=== PATIENT | female | born 1950 | race African-American/Black ===

== ENCOUNTER → 2019-01-16 | Outpatient (CLI) | payer OTHER ==
[2015-01-25 05:52] VITALS: BP 122/59
--- NOTE | 2019-01-17 16:31 | RAD ---
DATE: 01/16/2019. EXAM: MAMMO BISHNU SCREENING BILATERAL. HISTORY: Routine mammographic screening. COMPARISON: This is the baseline study. This study was interpreted with the benefit of Computerized Aided Detection (CAD). FINDINGS: Breast Density: SCATTERED The breast parenchyma shows scattered fibroglandular densities. Breast parenchyma level B.. There is a partially obscured nodule laterally on the left. There is no suspicious finding on the right. BI-RADS CATEGORY: 0 INCOMPLETE: NEEDS ADDITIONAL IMAGING EVALUATION AND/OR PRIOR MAMMOGRAMS FOR COMPARISON. RECOMMENDED FOLLOW-UP: ADD ADDITIONAL IMAGING. 1. Sonography of the left breast at the 3 clock position to assess a nodule at baseline. PQRS compliance statement: Patient information was entered into a reminder system with a target due date (now) for the next mammogram. Mammography is a sensitive method for finding small breast cancers, but it does not detect them all and is not a substitute for careful clinical examination. A negative mammogram does not negate a clinically suspicious finding and should not result in delay in biopsying a clinically suspicious abnormality. "Our facility is accredited by the [employer] Mammography [employer]."
== END | disposition home or self-care (01) ==
LOC: MAMMO 13:51 → MERGE 14:00
PROVIDERS: ATTEND Family Medicine
DX: Z12.31 Encounter for screening mammogram for malignant neoplasm of breast (principal); N63.20 Unspecified lump in the left breast, unspecified quadrant
CPT/HCPCS: 77063; 77067

== ENCOUNTER → 2019-01-22 | Outpatient (CLI) | payer OTHER ==
[2015-01-25 05:52] VITALS: BP 122/59
--- NOTE | 2019-01-23 08:57 | RAD ---
DATE: 01/22/2019 12:35 PM EXAM: BREAST LEFT HISTORY: Call back right breast mass. COMPARISON: January 16, 2019 Real-time targeted to left breast ultrasound. FINDINGS: Targeted left breast ultrasound at the 3:00 position. There is a small well-circumscribed hypoechoic lesion measures 6 x 3 x 4 mm retroareolar. The lesion likely corresponds with mammographic finding. IMPRESSION: Hypoechoic well-circumscribed lesion within the left breast 3:00 position likely correlating with mammographic finding, may represent a complicated cyst. BI-RADS CATEGORY: 3 PROBABLY BENIGN FINDING(S)-SHORT INTERVAL FOLLOW-UP SUGGESTED RECOMMENDED FOLLOW-UP: 6M 6 MONTH FOLLOW-UP recommended 6 month follow-up left breast mammograms and targeted ultrasound to ensure stability. PQRS compliance statement: Patient information was entered into a reminder system with a target due date 6 months for the next mammogram. Mammography is a sensitive method for finding small breast cancers, but it does not detect them all and is not a substitute for careful clinical examination. A negative mammogram does not negate a clinically suspicious finding and should not result in delay in biopsying a clinically suspicious abnormality. "Our facility is accredited by the [employer] Mammography [employer]."
== END | disposition home or self-care (01) ==
LOC: US 12:22
PROVIDERS: ATTEND Family Medicine
DX: N64.89 Other specified disorders of breast (principal)
CPT/HCPCS: 76641

== ENCOUNTER → 2021-03-01 | Outpatient (CLI) | payer MEDICARE, OTHER ==
[2015-01-25 05:52] VITALS: BP 122/59
--- NOTE | 2021-03-02 09:36 | RAD ---
EXAMINATION: US BREAST LT, MG DIGITAL BILAT DIAGNOSTIC MAMMO WITH BISHNU History: Missed six-month follow-up for abnormal left breast mammogram and ultrasound in 2019. Comparison: Left breast mammogram and ultrasound 01/22/2019. Technique: Bilateral digital diagnostic mammogram views were obtained. CAD was utilized. 3-D tomosyn thesis images were acquired. Focused left breast ultrasound was performed and there is concern. Findings: Breast Tissue Density B : There are scattered areas of fibroglandular density. A 6 mm partially obscured mass in the left breast at approximately 3:00 3 cm from the nipple is uncha nged. There are no suspicious masses, calcifications, architectural distortion. At 3:00, 3 cm in the left breast there is an ovoid circumscribed hypoechoic mass measuring 5 x 3 x 4 mm. This has some posterior acoustic enhancement and is wider than tall. This is likely of benign com plicated cyst or clustered microcysts. Normal lymph nodes in the left axilla. IMPRESSION: Stable 5 mm circumscribed mass in the left breast at 3:00 3 cm the nipple, likely a complicated cyst or clustered microcysts. Given the fact that this has been stable for over 2 years, this can be consi dered benign and requires no further surveillance. Recommend annual screening mammogram in 12 months. BI-RADS category 2: Benign findings. The images were reviewed with computer aided detection. Patient information is entered into the reminder system with a target due date for the next screening mammogram. Mammography is the most sensitive method for finding small breast cancers, but it does not detect the m all and is not a substitute for careful clinical examination. A negative mammogram does not negate a clinically suspicious finding and should not result in delay in biopsying a clinically suspicious a bnormality. "Our facility is accredited by the [employer] Mammography Program." Electronically signed by: Evelyne Mohamud MD (03/02/2021 9:33 AM) [facility]
== END ==
LOC: MAMMO 09:11
PROVIDERS: ATTEND Family Medicine
DX: N63.23 Unspecified lump in the left breast, lower outer quadrant (principal)
CPT/HCPCS: 76641; 77066; G0279; 77062